=== PATIENT | female | born 1940 | race Caucasian/White ===

== ENCOUNTER 2017-09-30 10:53 | Inpatient (IN) | payer MEDICARE, MEDICAID ==
--- NOTE | 2017-09-30 11:26 | ED Physician Chart ---
ED Chief Complaint/HPI - Patient Information Date Seen:: 09/30/17 Time Seen:: 11:00 Chief Complaint:: Abdominal Pain History of Present Illness:: onset x one day of abdominal pain and distention with jaundice and ALOC and dementia; no report of trauma, H/As, neck pain, C/P, SOB, cough, A/N/V/D/C, fever, chills, or urinary s/s Allergies:: Allergies Allergy/AdvReac Type Severity Reaction Status Date / Time Penicillins [PCN] AdvReac Verified 09/30/17 10:58 Vitals:: Vital Signs - 8 hr 09/30/17 10:58 Temp 97.8 F HR 87 RR 16 BP 87/60 O2 Sat % 90 Historian:: Patient, EMS Review:: Nurse's Note Reviewed, EMS run form Reviewed ED Review of Systems - Review of Systems General/Constitutional: No fever, No chills, No weight loss, Weakness, No diaphoresis, No edema, No loss of appetite Skin: No skin lesions, No rash, No bruising, Other (jaundice) Head: No headache, No light-headedness Eyes: No loss of vision, No pain, No diplopia ENT: No earache, No nasal drainage, No sore throat, No tinnitus Neck: No neck pain, No swelling, No thyromegaly, No stiffness, No mass noted Cardio Vascular: No chest pain, No palpitations, No PND, No orthopnea, No edema Pulmonary: No SOB, No cough, No sputum, No wheezing GI: No nausea, No vomiting, No diarrhea, Pain, No melena, No hematochezia, No constipation, No hematemesis G/U: No dysuria, No frequency, No hematuria Marketing Systems Manager: No vaginal discharge, No abnormal vaginal bleed, No contraction Musculoskeletal: No bone or joint pain, No back pain, No muscle pain Endocrine: No polyuria, No polydipsia Psychiatric: No prior psych history, No depression, No anxiety, No suicidal ideation, No homicidal ideation, No auditory hallucination, No visual hallucination Hematopoietic: No bruising, No lymphadenopathy Allergic/Immuno: No urticaria, No angioedema Neurological: No syncope, No focal symptoms, Weakness, No paresthesia, No headache, No seizure, No dizziness, Confusion, No vertigo ED Past Medical History - Past Medical History Obtainable: Yes Past Medical History: HTN, CAD, Dyslipidemia, Arthritis, Dementia, Other (Liver CA) Family History: Diabetes Melitus, HTN Social History: Non Smoker, No Alcohol, No Drug Use, Single, Care Facility Surgical History: None Psychiatricy History: Dementia Medication: Reviewed Family Medical History - Family Member Mother History Unknown: Yes Ethnicity: ED Physical Exam - Physical Examination General/Constitutional: Awake, Well-developed, well-nourished, Alert, No distress, GCS 15, Non-toxic appearing, Ambulatory Head: Atraumatic Eyes: Lids, conjuctiva normal, PERRL, EOMI Other Eyes comments:: + Scleral Icterus Skin: Nl inspection, No rash, No skin lesions, No ecchymosis, Well hydrated, No lymphadenopathy Other Skin comments:: + Jaundice ENMT: External ears, nose nl, Nasal exam nl, Lips, teeth, gums nl Neck: Nontender, Full ROM w/o pain, No JVD, No nuchal rigidity, No bruit, No mass, No stridor Respiratory: Nl effort/Exclusion, Clear to Auscultation, No Wheeze/Rhonchi/Rales Cardio Vascular: RRR, No murmur, gallop, rubs, NL S1 S2, Carotid/Femoral/Distal pulses equal bilaterally GI: No tenderness/rebounding/guarding, No organomegaly, No hernia, Normal BS's, No mass/bruits, No McBurney tenderness Other GI comments:: + Distention; + Ascites : No CVA tenderness Extremities: No tenderness or effusion, Full ROM, normal strength in all extremities, No edema, Normal digits & nails Neuro/Psych: Alert/oriented, DTR's symmetric, Normal sensory exam, Normal motor strength, Judgement/insight normal, Mood normal, Normal gait, No focal deficits Misc: Normal back, No paraspinal tenderness ED Labs/Radiology/EKG Results - Lab Results Comments:: Na+: 125; K+: 3.0; CO2: 15.7; BUN: 50; Cr: 3.3; Elevated LFTs - Radiology Results Comments:: CXR: + RLL Infiltrate - EKG Interpretations EKG Time:: 11:43 Rate & Rhythm: 55; SB Comments:: non-specific st-t changes ED Septic Shock - . Is Septic Shock (SBP<90, OR Lactate>4 mmol\L) present?: No - <6hrs of presentation: Vital Signs: Vital Signs - 8 hr 09/30/17 10:58 Temp 97.8 F HR 87 RR 16 BP 87/60 O2 Sat % 90 ED Reassessment (Disposition) - Reassessment Reassessment Condition:: Improved - Diagnosis Diagnosis:: Pneumonia; Sepsis; Hypokalemia; Hyponatremia; Dehydration; Cirrhosis; Hepatitis ; Renal Failure; Hepatic Failure - Aftercare/Follow up Instructions Aftercare/Follow-Up Instructions:: Counseled pt regarding lab results/diagnosis & need follow up, Counseled pt & family regarding lab results/diagnosis & need follow up - Patient Disposition Discharge/Transfer:: Acute Care w/in this hosp Accepting Physician:: Dr. Spaulding Time Called:: 1330 Time Responded:: 13:30 Admitted to:: Telemetry Spoke to:: Dr. Spaulding Admitting Medical Physician:: Dr. Spaulding Condition at Disposition:: Stable, Improved
[2017-09-30] MEDS ORDERED: Sodium Chloride 0.9% 1,000 ML IV ONE (11:31)
[2017-09-30 11:50] LABS: % EOSINOPHILS 1.6 % (0.0-5.0); % LYMPHOCYTES 54.6 % (20.0-50.0); % MONOCYTES 1.8 % (2.0-10.0); EOSINOPHILE ABSOLUTE 0.1 Th/cmm (0.1-0.4); HEMATOCRIT 40.9 % (41.0-60); HEMOGLOBIN 14.3 gm/dL (12-16); LYMPHOCYTE ABSOLUTE 4.3 Th/cmm (1.5-3.0); MEAN CELL VOLUME 94.5 fl (81-100); MEAN CORPUSCULAR HGB CONC 34.9 pg (28.0-36.0); MONOCYTE ABSOLUTE 0.1 Th/cmm (0.3-1.0); NEUTROPHILE ABSOLUTE 3.2 Th/cmm (1.8-8.0); PLATELET COUNT 68 Th/cmm (150-400); RED BLOOD COUNT 4.33 Mil/cmm (3.80-5.20); RED CELL DISTRIBUTION WIDTH 18.8 % (11.5-20.0); WHITE BLOOD COUNT 7.7 Th/cmm (4.8-10.8)
[2017-09-30 12:15] LABS: INR 2.91 (0.5-1.4)
--- NOTE | 2017-09-30 12:45 | Diagnostic Imaging Report ---
Exam: Portable chest x-ray HISTORY: Chest pain. Findings: Portable exam of the chest at 1152 hours reviewed. No prior studies available comparison. The study demonstrates right lower lobe pneumonia and effusion. Mediastinal structures midline the heart is not enlarged. Bony thorax is intact. The aortic arch calcified. IMPRESSION: right lower lobe pneumonia and effusion follow-up examination recommended.
[2017-09-30 12:46] LABS: AMYLASE SERUM 33 U/L (29-103); LIPASE 112 U/L (11-82)
[2017-09-30 13:40] LABS: ALB/GLOB RATIO 0.6 (1.0-1.8); ALBUMIN < 1.5 gm/dL (3.7-5.3); ALKALINE PHOSPHATASE 227 U/L (34-104); ANION GAP 14.3 (7.0-16.0); BILIRUBIN,TOTAL 3.5 mg/dL (0.3-1.0); BUN - UREA NITROGEN 50 mg/dL (7-25); CALCIUM SERUM 8.4 mg/dL (8.6-10.3); CARBON DIOXIDE 15.7 mEq/L (21.0-31.0); CHLORIDE 98 mEq/L (98-107); CHOLESTEROL 113 mg/dL (<200); CREATININE - SERUM 3.3 mg/dL (0.6-1.2); CREATININE KINASE 116 U/L (30-223); GLUCOSE 106 mg/dL (70-105); HDL -HIGH DENSITY LIPOPROTEIN 6 mg/dL (23-92); SGOT 141 U/L (13-39); SGPT/ALT 46 U/L (7-52); SODIUM SERUM 125 mEq/L (136-145); TOTAL PROTEIN,SERUM 4.2 gm/dL (6.0-8.3); TRIGLYCERIDES 72 mg/dL (<150)
[2017-09-30] MEDS ORDERED: Potassium Chloride 20 mEq ER Tab PO ONE ×2 (14:07→14:14)
[2017-09-30] MEDS ORDERED: Levofloxacin 500mg/100mL 500 MG/100 ML BAG IV ONE ×2 (14:08→14:14)
[2017-09-30] MEDS: Sodium Chloride 0.9% 1,000 ML IV SCH (18:37)
[2017-09-30] MEDS ORDERED: Sodium Chloride 0.9% 250 ML IV ONE (20:47)
[2017-09-30] MEDS ORDERED: Non-Formulary Item 1 EA (Melatonin [Melatonin] 3 MG) PO SCH (21:00)
[2017-10-01 04:00] VITALS: BP 83/35
[2017-10-01] MEDS: Sodium Chloride 0.9% 1,000 ML IV SCH (05:24)
[2017-10-01 07:05] LABS: HEMATOCRIT 44.7 % (41.0-60); HEMOGLOBIN 15.1 gm/dL (12-16); MEAN CELL VOLUME 96.3 fl (81-100); MEAN CORPUSCULAR HEMOGLOBIN 32.4 pg (27.0-31.0); MEAN CORPUSCULAR HGB CONC 33.7 pg (28.0-36.0); PLATELET COUNT 55 Th/cmm (150-400); RED BLOOD COUNT 4.65 Mil/cmm (3.80-5.20); RED CELL DISTRIBUTION WIDTH 19.3 % (11.5-20.0)
[2017-10-01 07:08] LABS: MANUAL DIFF REQUIRED? YES; WHITE BLOOD COUNT 11.6 Th/cmm (4.8-10.8)
[2017-10-01 07:23] LABS: ANION GAP 19.7 (7.0-16.0); BUN - UREA NITROGEN 48 mg/dL (7-25); CHLORIDE 101 mEq/L (98-107); CREATININE - SERUM 3.4 mg/dL (0.6-1.2); GLUCOSE 53 mg/dL (70-105); SODIUM SERUM 125 mEq/L (136-145)
[2017-10-01 07:24] LABS: ALKALINE PHOSPHATASE 214 U/L (34-104); SGOT 233 U/L (13-39); SGPT/ALT 65 U/L (7-52)
[2017-10-01 07:27] LABS: CARBON DIOXIDE 8.3 mEq/L (21.0-31.0)
[2017-10-01 07:57] LABS: ALB/GLOB RATIO 0.5 (1.0-1.8); ALBUMIN < 1.5 gm/dL (3.7-5.3); BILIRUBIN,TOTAL 3.3 mg/dL (0.3-1.0); TOTAL PROTEIN,SERUM 4.3 gm/dL (6.0-8.3)
[2017-10-01 08:09] LABS: TOTAL CELLS COUNTED 100
[2017-10-01 08:17] LABS: BAND NEUTROPHILE 18 % (0-10); LYMPHOCYTE 11 % (20-50); MONOCYTE 4 % (2-10); NEUTROPHILS 67 % (40-80); PLATELET ESTIMATE DECREASED PLATELETS (NORMAL); PLATELET MORPHOLOGY PLATELET CLUMPS SEEN (NORMAL)
--- NOTE | 2017-10-01 08:21 | Diagnostic Imaging Report ---
Ultrasound pelvis, limited History: Ascites Comparison: None Technique: Sonography of the pelvis performed in multiple planes Findings: The ovaries and uterus are not visualized. Mild ascites was noted. IMPRESSION: Mild ascites. The ovaries and uterus are not visualized. Please correlate with patient's clinical and surgical history.
--- NOTE | 2017-10-01 08:31 | Diagnostic Imaging Report ---
Ultrasound abdomen HISTORY: Ascites COMPARISON: Ultrasound pelvis the same day Technique: Sonography of the abdomen was performed in multiple planes. FINDINGS: Moderate generalized ascites is noted. The liver demonstrates heterogeneous echotexture with irregular borders. No discrete focal lesions identified. The liver measures 11.7 cm. Gallstones are noted. The gallbladder wall measures 3 mm. The common bile duct measures 4 mm. Assessment of pancreas is limited due to bowel gas. The right kidney measures 9.4 cm. The Left kidney measures 9.8 cm. No evidence of focal lesions or hydronephrosis. The spleen measures 11.2 cm. The visualized portions of abdominal aorta within normal limits in size. A right pleural effusion is noted. IMPRESSION: Moderate generalized ascites. Gallstones. Mild prominence of the gallbladder wall is noted, nonspecific and may be related to patient's ascites. Please correlate with clinical findings. If indicated nuclear medicine HIDA scan may be obtained for further assessment. Cirrhotic appearing liver. Right pleural effusion noted.
--- NOTE | 2017-10-01 08:36 | General Progress Note ---
Subjective - Review of Systems Service Date: 10/01/17 Subjective: Patient before examination Objective - Results Result Diagrams: 10/01/17 05:55 10/01/17 05:55 Recent Labs: Laboratory Last Values WBC 11.6 Th/cmm (4.8-10.8) H D 10/01/17 05:55 RBC 4.65 Mil/cmm (3.80-5.20) 10/01/17 05:55 Hgb 15.1 gm/dL (12-16) 10/01/17 05:55 Hct 44.7 % (41.0-60) 10/01/17 05:55 MCV 96.3 fl (81-100) 10/01/17 05:55 MCH 32.4 pg (27.0-31.0) H 10/01/17 05:55 MCHC Differential 33.7 pg (28.0-36.0) 10/01/17 05:55 RDW 19.3 % (11.5-20.0) 10/01/17 05:55 Plt Count 55 Th/cmm (150-400) L 10/01/17 05:55 MPV 10.0 fl 10/01/17 05:55 Neutrophils % 42.0 % (40.0-80.0) 09/30/17 11:30 Band Neutrophils % 18 % (0-10) H 10/01/17 05:55 Lymphocytes % 54.6 % (20.0-50.0) H 09/30/17 11:30 Monocytes % 1.8 % (2.0-10.0) L 09/30/17 11:30 Eosinophils % 1.6 % (0.0-5.0) 09/30/17 11:30 Basophils % 0.0 % (0.0-2.0) 09/30/17 11:30 Neutrophils (Manual) 67 % (40-80) 10/01/17 05:55 Lymphocytes 11 % (20-50) L 10/01/17 05:55 Monocytes 4 % (2-10) 10/01/17 05:55 Platelet Estimate DECREASED PLATELETS (NORMAL) 10/01/17 05:55 Platelet Morphology PLATELET CLUMPS SEEN (NORMAL) 10/01/17 05:55 PT 32.0 SECONDS (9.5-11.5) H 09/30/17 11:30 INR 2.91 (0.5-1.4) H 09/30/17 11:30 Sodium 125 mEq/L (136-145) L 10/01/17 05:55 Potassium 4.0 mEq/L (3.5-5.1) 10/01/17 05:55 Chloride 101 mEq/L (98-107) 10/01/17 05:55 Carbon Dioxide 8.3 mEq/L (21.0-31.0) L* 10/01/17 05:55 Anion Gap 19.7 (7.0-16.0) H 10/01/17 05:55 BUN 48 mg/dL (7-25) H 10/01/17 05:55 Creatinine 3.4 mg/dL (0.6-1.2) H 10/01/17 05:55 Est GFR ( Amer) TNP 10/01/17 05:55 Est GFR (Non-Af Amer) TNP 10/01/17 05:55 BUN/Creatinine Ratio 14.1 10/01/17 05:55 Glucose 53 mg/dL (70-105) L 10/01/17 05:55 Calcium 8.0 mg/dL (8.6-10.3) L 10/01/17 05:55 Total Bilirubin 3.3 mg/dL (0.3-1.0) H 10/01/17 05:55 Direct Bilirubin 2.20 mg/dL (0.0-0.2) H 09/30/17 11:30 AST 233 U/L (13-39) H 10/01/17 05:55 ALT 65 U/L (7-52) H 10/01/17 05:55 Alkaline Phosphatase 214 U/L (34-104) H 10/01/17 05:55 Ammonia 269 umol/L (16-53) H 10/01/17 05:55 Creatine Kinase 116 U/L (30-223) 09/30/17 11:30 Troponin I 0.06 ng/mL (0.01-0.05) H 09/30/17 11:30 B-Natriuretic Peptide 66.0 pg/mL (5.0-100.0) 09/30/17 11:30 Total Protein 4.3 gm/dL (6.0-8.3) L 10/01/17 05:55 Albumin < 1.5 gm/dL (3.7-5.3) L 10/01/17 05:55 Globulin 2.8 gm/dL 10/01/17 05:55 Albumin/Globulin Ratio 0.5 (1.0-1.8) L 10/01/17 05:55 Triglycerides 72 mg/dL (<150) 09/30/17 11:30 Cholesterol 113 mg/dL (<200) 09/30/17 11:30 LDL Cholesterol Direct 76 mg/dL (75-193) 09/30/17 11:30 HDL Cholesterol 6 mg/dL (23-92) L 09/30/17 11:30 Amylase 33 U/L (29-103) 09/30/17 11:30 Lipase 112 U/L (11-82) H 09/30/17 11:30 - Physical Exam Vitals and I&O: Vital Signs Temp 90.0 F 10/01/17 04:00 Pulse 64 10/01/17 04:00 Resp 16 10/01/17 04:00 BP 104/79 10/01/17 04:00 Pulse Ox 90 10/01/17 04:00 Intake & Output 09/30/17 10/01/17 10/01/17 18:59 06:59 18:59 Intake Total 808.75 Balance 808.75 Weight (lbs) 77.201 kg Intake: Intake, IV Amount 808.75 Sodium Chloride 0.9% 1, 808.75 000 ml @ 75 mls/hr IV . [id number] [facility] Rx#:[id number] Other: # Voids 0 # Bowel Movements 0 Active Medications: Current Medications Acetaminophen (Tylenol) 650 mg PO Q4HR PRN PRN Reason: Fever > 101 Stop: 11/29/17 17:42 Last Admin: 09/30/17 20:34 Dose: 650 mg Sodium Chloride (Nacl 0.9%) 1,000 mls @ 75 mls/hr IV .[id number] [facility] Stop: 11/29/17 15:29 Last Admin: 10/01/17 05:24 Dose: 75 mls/hr Ondansetron HCl (Zofran Odt) 4 mg PO Q6HR PRN PRN Reason: Nausea Stop: 11/29/17 17:42 Rifampin (Rifadin) 600 mg PO BID [facility] Stop: 11/30/17 08:59 Tramadol HCl (Ultram) 50 mg PO Q6HR PRN PRN Reason: Abdominal Pain Stop: 11/30/17 01:05 Last Admin: 10/01/17 01:21 Dose: 50 mg Assessment/Plan - Assessment Assessment: I received a phone call from SN[facility] stating that patient had abdominal distension, edema in increased in confusion. She was hospitalized and before been examined for me. - Plan Plan: Patient was pronounce on 10/01/17 at 7:50 by ER doctor.
[2017-10-01] MEDS ORDERED: Non-Formulary Item 1 EA (Rifaximin [Xifaxan] 550 MG) PO SCH (09:00)
[2017-10-01] MEDS ORDERED: Rifampin 300 mg Cap PO SCH (09:00)
== END 2017-10-01 07:50 | disposition expired | DRG 871 ==
LOC: ER 10:53 → MSI 14:30 → TELE 20:45
PROVIDERS: ADMIT General Practice; ATTEND General Practice
DX: A41.9 Sepsis, unspecified organism (principal); J18.9 Pneumonia, unspecified organism; N19 Unspecified kidney failure; F03.90 Unspecified dementia, unspecified severity, without behavioral disturbance, psychotic disturbance, mood disturbance, and anxiety; E86.0 Dehydration; K74.60 Unspecified cirrhosis of liver; K72.90 Hepatic failure, unspecified without coma; E87.1 Hypo-osmolality and hyponatremia; K75.9 Inflammatory liver disease, unspecified; E78.5 Hyperlipidemia, unspecified; I10 Essential (primary) hypertension; E87.6 Hypokalemia; I25.10 Atherosclerotic heart disease of native coronary artery without angina pectoris; M19.90 Unspecified osteoarthritis, unspecified site; Z85.05 Personal history of malignant neoplasm of liver; Z83.3 Family history of diabetes mellitus; Z82.49 Family history of ischemic heart disease and other diseases of the circulatory system
CPT/HCPCS: 36415-UA; 71010-TC; 76700-TC; 76856-TC; 80053-TC; 80061-TC; 82140-TC; 82150-TC; 82248-TC; 82550-TC; 83690-TC; 83880-TC; 84443-TC; 84484-TC; 85007-TC; 85025-TC; 85027-TC; 85610-TC; 93005; J1956; J7030; Z7610